=== PATIENT | female | born 1980 | race Hispanic/Latino ===

== ENCOUNTER 2018-11-26 11:58 | Outpatient (CLI) | payer OTHER ==
--- NOTE | 2018-11-26 12:53 | RAD ---
ABDOMEN 1 VIEW: HISTORY: Left lower quadrant pain. Blood in the urine. FINDINGS/IMPRESSION: The bowel gas pattern is unremarkable. No suspicious calcifications are seen. POS: OFF
== END 2018-11-26 11:59 | disposition home or self-care (01) ==
LOC: BICRAD 11:58
PROVIDERS: ATTEND Family Medicine
DX: R10.32 Left lower quadrant pain (principal)
CPT/HCPCS: 74018